=== PATIENT | female | born 1980 | race African-American/Black ===

== ENCOUNTER 2021-07-07 16:59 | Emergency (ER) | payer SELFPAY ==
[~2021-07-07] VITALS: Ht 162.6 cm; Wt 66.0 kg
[2021-07-07 18:32] VITALS: BP 143/83
== END 2021-07-07 18:55 | disposition home or self-care (01) ==
LOC: ER 16:59
DX: I10 Essential (primary) hypertension (principal)
CPT/HCPCS: 99282